=== PATIENT | female | born 1990 | race Caucasian/White ===

== ENCOUNTER 2018-09-06 17:31 | Observation (INO) | payer BC, OTHER ==
[2018-09-06 18:11] LABS: #Eosinphils 0.2 thou/uL (0.0-0.7); #Monocytes 0.6 thou/uL (0.11-0.59); %Basophils 0.2 % (0.0-1.0); %Eosinophils 1.2 % (0.0-10.0); %Lymphocytes 31.2 % (21.0-51.0); %Neutrophils 62.4 % (42.0-75.0); Hemoglobin 12.8 g/dL (12.0-16.0); Mean Corpuscular HGB CONC 35.2 g/dL (32.0-36.0); Mean Corpuscular Hemoglobin 34.1 pg (27.0-31.0); Mean Corpuscular Volume 96.6 fL (78.0-98.0); Platelet Count 272 thou/uL (130-400); RBC Distribution Width 11.9 % (11.5-14.5); Red Blood Cell (RBC) Count 3.77 mill/uL (4.20-5.40); White Blood Cell (WBC) Count 12.8 thou/uL (4.8-10.8)
[2018-09-06 18:32] LABS: ALT (SGPT) 11 U/L (8-55); AST (SGOT) 12 U/L (5-34); Albumin 3.6 g/dL (3.5-5.0); Alkaline Phosphatase 60 U/L (40-150); Anion Gap 13 mmol/L (10-20); BUN (Urea Nitrogen) 8 mg/dL (7.0-18.7); Bilirubin, Total 0.5 mg/dL (0.2-1.2); Calc. Creatinine Clearance 0 mL/min (70-130); Carbon Dioxide 20 mmol/L (22-29); Chloride 109 mmol/L (98-107); Estimated GFR-MDRD Greater than 90; Globulin 2.4 g/dL (2.4-3.5); Glucose 91 mg/dL (70-105); Potassium 3.7 mmol/L (3.5-5.1); Sodium 138 mmol/L (136-145)
[2018-09-06] MEDS ORDERED: Morphine 4 MG/ML VIAL ONE (19:24)
[2018-09-06] MEDS ORDERED: Ondansetron PF 4 MG/2 ML Vial ONE (19:24)
--- NOTE | 2018-09-06 19:24 | ULT ---
Ultrasound limited right lower quadrant: HISTORY: Right lower quadrant abdominal pain in 28-year-old female. FINDINGS: The appendix is not identified. IMPRESSION: Nondiagnostic for appendicitis.
[2018-09-06 19:43] LABS: Bilirubin Negative (Negative); Blood, Urine Negative (Negative); Clarity TURBID (Clear); Glucose, Urine (Dipstick) Negative (Negative); Leukocyte Trace (Negative); Nitrite Negative (Negative); Protein, Urine (Dipstick) Negative (Neg-Trace); Specific Gravity, Urine 1.011 (1.002-1.036); Urobilinogen 0.2 mg/dL (0.2-1.0); pH, Urine 6.5 (5.0-9.0)
[2018-09-06 19:46] LABS: Bacteria/HPF 1+ HPF (None Seen); Hyaline Casts/LPF 4-6 HYALINE CAST LPF (0-3 Hyaline); Pathc Cast-AUWi Flag 1.76 (0-2.49); RBC/HPF 0-3 HPF (0-3); WBC/HPF 0-3 HPF (0-3)
[2018-09-07] MEDS ORDERED: Promethazine 25 MG TAB PO PRN (00:14)
[2018-09-07] MEDS ORDERED: Morphine 2 MG/ML SYRINGE SLOW IVP SCH (00:30)
[2018-09-07] MEDS ORDERED: Famotidine 20 MG TAB PO SCH ×2 (00:30→09:00)
[2018-09-07] MEDS ORDERED: Morphine 10 MG/ML VIAL IM SCH (00:30)
[2018-09-07 04:00] VITALS: BMI 33.5
[2018-09-07] MEDS ORDERED: Cyclobenzaprine 10 MG TAB PO SCH (07:15)
[2018-09-07] MEDS ORDERED: Morphine 2 MG/ML SYRINGE IM SCH (07:15)
--- NOTE | 2018-09-07 08:08 | DIS ---
DATE OF ADMISSION: 09/06/2018 DATE OF DISCHARGE: 09/07/2018 ADMITTING DIAGNOSIS: Abdominal pain. DISCHARGE DIAGNOSIS: Musculoskeletal pain of . CONSULTATIONS: None. HOSPITAL COURSE: The patient is a 28-year-old female, who was evaluated downstairs in the emergency room for ongoing right lower quadrant pain. There was some initial question or concern that she may have a possible appendicitis, and the patient was brought in for serial exams. When she came to the floor, my assessment on physical exam was more suggestive of musculoskeletal pain of , ligament pain on the right side, and upper gluteal spasms. The patient was hungry and was feeling not having significant pain at the time of our evaluation. She was allowed to eat and slept through the night with some IM morphine on board this morning. Her main complaint was pain in the upper gluteal region that is reproducible with palpation. She has some various areas of spasm, not at muscle that is causing her pain. Given that the patient in my assessment has no evidence of appendicitis, the patient is being discharged to home with some Flexeril and Tylenol No.3. DISCHARGE PHYSICAL EXAMINATION: VITAL SIGNS: This morning, temperature is 97.7, pulse is 71, blood pressure 99/58, respiratory rate 18, and saturating 99% on room air. GENERAL: She appears to be in no acute distress. She is alert, oriented, cooperative, and pleasant to interact with. HEAD: Normocephalic and atraumatic. ABDOMEN: Soft and gravid. She does have this palpable spasms in her upper gluteal region on the right side. The patient reconfirming that these pains are much worse with her bending over reaching. DISCHARGE DISPOSITION: The patient is being discharged to home. She has a script for Tylenol No. 3 and for Flexeril. She also has instructions to call her primary OB Dr. Pena on Saturday to give her an update. Job ID: [id number]
[2018-09-07 09:39] VITALS: BP 97/58; TEMP 98.2
--- NOTE | 2018-09-08 09:15 | SS ---
DATE OF ADMISSION: 09/06/2018 DATE OF DISCHARGE: 09/07/2018 CHIEF COMPLAINT: Abdominal pain. HISTORY OF PRESENT ILLNESS: The patient is a 28-year-old G5, P4 female with an intrauterine at about 18 weeks who presented to the emergency room today with a 1-week history of abdominal pain in the right lower quadrant. The patient reports that this pain is worse with activity and movement with lifting her 8-month-old child with a rolling over in bed. She reports the pain as being sharp and stabbing. The patient has had some diarrhea and some nausea earlier. She reports that she has been extremely hungry at this time of my evaluation. There was some concern about her possibly having appendicitis and was admitted to observation for serial abdominal examination. The patient denies fever. She denies worsening pain. She denies lack of appetite. She has had some nausea and vomiting with this and has been prescribed Phenergan. The patient reports that she was seen a couple of days ago by her primary OB, Dr. Gracie Pena in office evaluation and was noted to have a normal appearing ovary or adnexa on the right. PAST MEDICAL HISTORY: Negative. PAST SURGICAL HISTORY: She has had a cholecystectomy, left ovarian surgery, left clavicle surgery. SOCIAL HISTORY: The patient smokes about a half pack per day. ALLERGIES: NO KNOWN DRUG ALLERGIES. MEDICATIONS: Ibuprofen, on occasion last couple of days. PHYSICAL EXAMINATION: VITAL SIGNS: Blood pressure 101/60, pulse of 118, respiratory rate of 22, temperature 99.3, pain of 7. GENERAL: At time of my examination, the patient appears to be in no acute distress, again requesting something to eat. She is alert, oriented, cooperative, and pleasant to interact with. HEENT: Head is normocephalic and atraumatic. LUNGS: Clear to auscultation bilaterally. HEART: Has a regular rate and rhythm. ABDOMEN: Soft. She has no peritoneal signs. No rigidity. No guarding. No rebound. She has no referring pain. The patient does have some reproducible tenderness to palpation on the right lower quadrant, especially with deviation of the uterus. The patient has no tenderness to palpation retrouterine at the level of her iliac crest to deep palpation. PELVIC: The patient has some tenderness to palpation close to the level of the hymen with the pelvic floor muscles; however, she has no tenderness to deep palpation into the left and right adnexa. The patient does have some SI joint tenderness to palpation. DIAGNOSTIC DATA: Ultrasound was nondiagnostic for any evidence of appendicitis. LABORATORY DATA: White count 12.8, hemoglobin 12.8, hematocrit 36.4, platelets 272,000 with neutrophil percent at 62%. ASSESSMENT AND PLAN: The patient is a 28-year-old female with musculoskeletal pains of , although this is much earlier in than normally seen. This is more common in patients that have had multiple children such as herself. The patient has been given reassurance and has been allowed to eat. Has been offered some IV pain medication, so she will be getting 6 mg of morphine IM and 2 mg IV. We have asked that she can take 1 g of Tylenol 3 times a day for the next few days and a couple of ibuprofen as needed. We have also recommended the patient use some sort of belly support which may help minimize her need for other pain medications. The patient's plan is for discharge in the morning as due to the lateness of the hour, the patient will remain here. The patient has followup with her primary OB, Dr. Gracie Pena, which we have encouraged that she keep. Job ID: [id number]
== END 2018-09-07 09:30 | disposition home or self-care (01) ==
LOC: ERS 17:31 → 3SW 21:50
PROVIDERS: ADMIT Obstetrics & Gynecology; ATTEND Obstetrics & Gynecology
DX: O99.89 Other specified diseases and conditions complicating pregnancy, childbirth and the puerperium (principal); R10.31 Right lower quadrant pain; F17.210 Nicotine dependence, cigarettes, uncomplicated; Z3A.18 18 weeks gestation of pregnancy
CPT/HCPCS: 36415; 76705; 80053; 81003; 81015; 83690; 85025; 87086; 96361; 96372; 96374; 96375; 96376; G0378; J2270; J2405; Q0169

== ENCOUNTER 2019-01-14 09:53 | Inpatient (IN) | payer BC ==
[2019-01-14 10:22] VITALS: BMI 37.5
[2019-01-14] MEDS ORDERED: Promethazine HCl 25 MG/ML VIAL IM PRN ×2 (10:44→12:55)
[2019-01-14] MEDS ORDERED: Ibuprofen 800 MG TAB PO PRN (10:44)
[2019-01-14] MEDS ORDERED: Ondansetron PF 4 MG/2 ML Vial IVP PRN ×3 (10:44→18:46)
[2019-01-14] MEDS ORDERED: Butorphanol Tartrate 1 MG/ML VIAL SLOW IVP PRN (10:44)
[2019-01-14] MEDS ORDERED: Lidocaine 1% (PF) 30 ML VIAL SC PRN (10:44)
[2019-01-14] MEDS ORDERED: Docusate 100 MG CAP PO PRN (10:44)
[2019-01-14] MEDS ORDERED: hydrALAZINE 20 MG/ML VIAL SLOW IVP PRN ×2 (10:44→18:46)
[2019-01-14] MEDS ORDERED: NS / Oxytocin 40 units/1000ml 1,000 ML IV PRN (10:44)
[2019-01-14] MEDS ORDERED: HYDROcodone/Acetaminophen 5/325 mg Tablet PO PRN ×3 (10:44→22:00)
[2019-01-14] MEDS: Lactated Ringer's 1,000 ML IV SCH ×2 (10:56→12:59)
[2019-01-14 11:21] LABS: Hemoglobin 12.4 g/dL (12.0-16.0); Mean Corpuscular HGB CONC 34.9 g/dL (32.0-36.0); Mean Corpuscular Hemoglobin 33.1 pg (27.0-31.0); Mean Corpuscular Volume 94.9 fL (78.0-98.0); Mean Platelet Volume 8.7 fL (7.4-10.4); Platelet Count 275 thou/uL (130-400); RBC Distribution Width 12.1 % (11.5-14.5); Red Blood Cell (RBC) Count 3.75 mill/uL (4.20-5.40); White Blood Cell (WBC) Count 11.5 thou/uL (4.8-10.8)
[2019-01-14] MEDS ORDERED: Fentanyl 4 mcg/Bup 0.1% Cadd 100 ML ONE (11:58)
[2019-01-14 12:06] LABS: HBSAg Index 0.22 S/CO (0-0.99); Hep B Surf Ag Non-Reactive S/CO (NonReactive); Syphilis Antibody Nonreactive (Nonreactive); Syphilis Antibody Index 0.05 S/CO (<1.00 Non-Reactive)
[2019-01-14] MEDS ORDERED: diphenhydrAMINE 50 MG/ML VIAL IVP PRN (12:55)
[2019-01-14] MEDS ORDERED: ePHEDrine/0.9% NaCl/PF SYRINGE 50 mg/10 ml SLOW IVP PRN (12:55)
[2019-01-14] MEDS ORDERED: Naloxone HCl 0.4 mg/ml Vial IVP PRN ×2 (12:55)
[2019-01-14] MEDS ORDERED: Acetaminophen 325 MG TAB PO PRN (12:55)
[2019-01-14] MEDS ORDERED: Lactated Ringer's 500 ML IV PRN (12:55)
[2019-01-14] MEDS ORDERED: Communication Order-Pharmacy FS SCH (13:00)
[2019-01-14] MEDS ORDERED: Fentanyl 4 mcg/Bupivacaine 0.1% Cassette 100 ML EPIDURAL SCH (13:00)
[2019-01-14] MEDS ORDERED: Famotidine 20 MG TAB PO SCH (15:15)
[2019-01-14] MEDS ORDERED: Misoprostol 200 MCG TAB ONE (16:26)
[2019-01-14] MEDS ORDERED: Methylergonovine 0.2 MG/ML VIAL ONE (16:36)
[2019-01-14] MEDS ORDERED: Ondansetron PF 4 MG/2 ML Vial ONE (17:06)
[2019-01-14] MEDS: NS w/ Oxytocin 10 units 500 ML IV SCH (17:14)
[2019-01-14] MEDS ORDERED: Ondansetron PF 4 MG/2 ML Vial IVP SCH (17:15)
[2019-01-14] MEDS ORDERED: Milk Of Magnesia 30 ML UDCUP PO PRN (18:46)
[2019-01-14] MEDS ORDERED: Preparation H Ointment 28 GM TUBE PR PRN (18:46)
[2019-01-14] MEDS ORDERED: Lanolin Ointment 7 GM TUBE TOP PRN (18:46)
[2019-01-14] MEDS ORDERED: Bisacodyl 10 MG SUPP PR PRN (18:46)
[2019-01-14] MEDS ORDERED: Adacel (T-DAP) 0.5 ML SYRINGE IM ONE (18:46)
[2019-01-14] MEDS ORDERED: Benzocaine-Menthol 82.5 ML CAN TOP PRN (18:46)
[2019-01-14] MEDS: NS / Oxytocin 40 units/1000ml 1,000 ML IV SCH ×2 (18:58→21:28)
[2019-01-14] MEDS: Docusate Calcium (SURFAK) 240 MG CAP PO SCH (21:28)
[2019-01-14] MEDS: Ibuprofen 800 MG TAB PO SCH (21:28)
[2019-01-14] MEDS: HYDROcodone/Acetaminophen 5/325 mg Tablet PO PRN (22:09)
[2019-01-15] MEDS: Lactated Ringer's 1,000 ML IV SCH ×3 (03:18→18:04)
[2019-01-15] MEDS: Ibuprofen 800 MG TAB PO SCH ×3 (06:13→21:24)
[2019-01-15] MEDS: HYDROcodone/Acetaminophen 5/325 mg Tablet PO PRN ×4 (06:13→20:27)
[2019-01-15] MEDS: Docusate Calcium (SURFAK) 240 MG CAP PO SCH ×2 (08:54→20:27)
[2019-01-15] MEDS: Prenatal Vitamin 1 TAB PO SCH (08:54)
[2019-01-15] MEDS: Famotidine 20 MG TAB PO SCH (08:54)
[2019-01-15] MEDS ORDERED: FLU VACC QS2019-20(6MOS UP)/PF 60 MCG/0.5 ML SYRINGE IM ONE (09:00)
[2019-01-15] MEDS: Ferrous Sulfate 325 MG TAB PO SCH ×2 (09:04→18:02)
[2019-01-15] MEDS: NS w/ Oxytocin 10 units 500 ML IV SCH (11:14)
[2019-01-15] MEDS ORDERED: Ondansetron ODT 4 MG TAB PO PRN (18:20)
[2019-01-16] MEDS: HYDROcodone/Acetaminophen 5/325 mg Tablet PO PRN ×4 (01:16→13:45)
[2019-01-16] MEDS: Lactated Ringer's 1,000 ML IV SCH ×2 (05:57→12:23)
[2019-01-16] MEDS: Ibuprofen 800 MG TAB PO SCH ×2 (06:12→13:43)
[2019-01-16] MEDS: Famotidine 20 MG TAB PO SCH (07:35)
[2019-01-16] MEDS: Docusate Calcium (SURFAK) 240 MG CAP PO SCH (07:36)
[2019-01-16] MEDS: Prenatal Vitamin 1 TAB PO SCH (07:36)
[2019-01-16 08:46] VITALS: BP 107/64; TEMP 97.6
[2019-01-16] MEDS ORDERED: FLUoxetine HCl 20 MG CAP PO SCH (09:00)
[2019-01-16] MEDS: Ferrous Sulfate 325 MG TAB PO SCH ×2 (09:07→17:21)
[2019-01-16] MEDS: NS w/ Oxytocin 10 units 500 ML IV SCH (12:23)
[2019-01-16] MEDS ORDERED: FLU VACC QS2019-20(6MOS UP)/PF 60 MCG/0.5 ML SYRINGE IM ONE (17:15)
== END 2019-01-16 17:39 | disposition home or self-care (01) | DRG 807 ==
LOC: L&D/OP 09:53 → L&D 10:11 → 3SW 21:44
PROVIDERS: ADMIT Obstetrics & Gynecology; ATTEND Obstetrics & Gynecology
PROC: 10E0XZZ Delivery of Products of Conception, External Approach (ICD-10-PCS; principal; 2019-01-14)
PROC: 10907ZC Drainage of Amniotic Fluid, Therapeutic from Products of Conception, Via Natural or Artificial Opening (ICD-10-PCS; 2019-01-14)
DX: O24.420 Gestational diabetes mellitus in childbirth, diet controlled (principal); Z37.0 Single live birth; Z3A.37 37 weeks gestation of pregnancy; O99.344 Other mental disorders complicating childbirth; F41.9 Anxiety disorder, unspecified; O99.334 Smoking (tobacco) complicating childbirth; F17.200 Nicotine dependence, unspecified, uncomplicated; O99.02 Anemia complicating childbirth; D50.9 Iron deficiency anemia, unspecified; F32.9 Major depressive disorder, single episode, unspecified
CPT/HCPCS: 36415; 36416; 51702; 85027; 85461; 86780; 86850; 86870; 86900; 86901; 87340; 90384; 90471; 90686; 96372; G0008; J1200; J2210; J2405; J2590; Q0162